=== PATIENT | male | born 1965 ===

== ENCOUNTER 2024-07-19 06:20 | Day surgery (SDC) | payer BC, SELFPAY ==
[2024-07-15 10:05] VITALS: BMI 25.5
[2024-07-15 12:22] LABS: Blood Urea Nitrogen 20 mg/dl (9-20); Carbon Dioxide 28 mmol/L (22-30); Chloride 98 mmol/L (98-107); Estimated Creatinine Clearance 114 ml/min; Glucose 85 mg/dl (70-99); Potassium 4.3 mmol/L (3.5-5.1); Sodium 135 mmol/L (135-145); eGFR > 60.00
[2024-07-19] VITALS (8 sets, daily range): BP systolic 126–156; BP diastolic 73–96; BMI 25.5
[2024-07-19] MEDS: CELEBREX 200 MG PO (13:05)
[2024-07-19] MEDS: TYLENOL 1000 MG PO (13:05)
[2024-07-19] MEDS: NORMOSOL-R/PLASMALYTE-A 1000 IV (13:05)
[2024-07-19] MEDS: DILAUDID 0.25 MG IV (16:11)
[2024-07-19] MEDS: ROXICODONE 5 MG PO (17:11)
== END 2024-07-19 17:30 | disposition home or self-care (01) ==
LOC: SDS 06:20
PROVIDERS: ATTENDING PHYSICIAN Specialist; FAMILY PHYSICIAN Nurse Practitioner Family
DX: S83.231A Complex tear of medial meniscus, current injury, right knee, initial encounter (principal); X58.XXXA Exposure to other specified factors, initial encounter
CPT/HCPCS: 29881; 36415; 80048